=== PATIENT | male | born 1960 | race Two or more races ===

== ENCOUNTER 2018-11-07 14:37 | Emergency (ER) | payer BC, OTHER ==
[2018-11-07] MEDS ORDERED: LIDOCAINE HCL 1% SDV SUBCUT STA (14:46)
[2018-11-07 14:51] VITALS: BP 136/92; TEMP 96.9; BMI 32.7
[2018-11-07] MEDS ORDERED: TENIVAC IM ONE (15:03)
--- NOTE | 2018-11-07 15:20 | ED.PDOC ---
General ED Provider: Dr. RAQUEL FARLEY-ER Chief Complaint: Finger Laceration Stated Complaint: something hit my finger and cut it Time Seen by Physician: 14:40 Mode of Arrival: Walk-In Information Source: Patient Exam Limitations: No limitations Primary Care Provider: NEHEMIAS WEBER Nursing and Triage Documentation Reviewed and Agree: Yes Does patient meet sepsis criteria?: No System Inflammatory Response Syndrome: Not Applicable Sepsis Protocol: For patient's 13 years and over: Temp is 96.8 and below OR 101 and greater Pulse >90 BPM Resp >20/minute Acutely Altered Mental Status Are patient's symptoms suggestive of a new infection, such as: -Pneumonia -Skin, Soft Tissue -Endocarditis -UTI -Bone, Joint Infection -Implantable Device -Acute Abdominal Infection -Wound Infection -Meningitis -Blood Stream Catheter Infection -Unknown Skin Complaint Exam - Laceration/Abrasion/Hand Complaint/Exam Location of Injury: Left, Digit #1 Mechanism of Injury: Laceration Onset/Duration: 30min Symptoms Are: Still present Initial Severity: Mild Current Severity: Mild Aggravating: Movement Alleviating: Compression Associated Signs and Symptoms: Denies: Fever, Chills, Erythema, Numbness, Tingling Differential Diagnoses: Laceration Review of Systems - Review Of Systems Constitutional: Reports: No symptoms Eyes: Reports: No symptoms Ears, Nose, Mouth, Throat: Reports: No symptoms Respiratory: Reports: No symptoms Cardiac: Reports: No symptoms GI: Reports: No symptoms : Reports: No symptoms Musculoskeletal: Reports: No symptoms Skin: Reports: No symptoms Neurological: Reports: No symptoms Endocrine: Reports: No symptoms Hematologic/Lymphatic: Reports: No symptoms All Other Systems: Reviewed and Negative Past Medical History - Past Medical History Previously Healthy: No Endocrine: Reports: Unknown Cardiovascular: Reports: Unknown Respiratory: Reports: Unknown Hematological: Reports: Unknown Gastrointestinal: Reports: Unknown Genitourinary: Reports: Unknown Neuro/Psych: Reports: Unknown Musculoskeletal: Reports: Unknown Cancer: Reports: Unknown - Surgical History General Surgical History: Reports: Unknown - Family History Family History: Reports: Unknown - Social History Smoking Status: Never smoker Hx Substance Use: No Alcohol Screening: None - Immunizations Tetanus Shot up to Date: No Physical Exam - Physical Exam Appearance: Well-appearing, No pain distress, Well-nourished Pain Distress: Mild Eyes: JARED ENT: Ears normal, Nose normal, Oropharynx normal Neck: Supple Respiratory: Airway patent, Breath sounds clear, Breath sounds equal, Respirations nonlabored Cardiovascular: RRR, Pulses normal, No rub, No murmur GI/: Soft, Nontender, No masses, Bowel sounds normal, No Organomegaly Musculoskeletal: Normal strength, ROM intact, No edema, No calf tenderness Skin: Warm, Dry, Normal color Neurological: Sensation intact, Motor intact, Reflexes intact, Cranial nerves intact, Alert, Oriented Psychiatric: Affect appropriate, Mood appropriate Interpretation - Radiology Interpretation Radiology Interpretation By: ED Physician Radiology Results: Negative Procedures - Laceration/Wound Repair No standard instances Wound Description: Linear Wound Length (cm): 1.5cm fingertip left index Wound Explored: Clean Wound Irrigated: No Wound Prep: Hibiclens Anesthesia: Lidocaine Wound Repaired With: Sutures Suture Size and Type: 4.0 prolene Number of Sutures: 3 Layer Closure?: No Sterile Dressing Applied?: Yes Splint Applied?: No Sling Applied?: No Critical Care Note - Critical Care Note Total Time (mins): 0 Course - Course Orders, Labs, Meds: Orders Category Date Time Status Lidocaine HCl/Pf [Lidocaine HCl 1% Sdv] MEDS 11/07/18 14:46 Discontinued 5 ml SUBCUT ONCE STA Tetanus and Diphtheria Tox/Pf [Tenivac] MEDS 11/07/18 15:03 Discontinued 0.5 ml IM .ONCE ONE FINGER(S), LEFT MIN 2V Stat RADS 11/07/18 15:09 Taken Medications Discontinued Medications Generic Name Dose Route Start Last Admin Trade Name Freq PRN Reason Stop Dose Admin Lidocaine HCl 5 ml 11/07/18 14:46 11/07/18 15:03 Lidocaine Hcl 1% Sdv SUBCUT 11/07/18 14:47 5 ml ONCE STA Administration Tetanus/Diphtheria Toxoids Adsorbed 0.5 ml 11/07/18 15:03 11/07/18 15:07 Tenivac IM 11/07/18 15:04 0.5 ml .ONCE ONE Administration Vital Signs: Temp Pulse Resp BP Pulse Ox 11/07/18 14:37 96.9 F L 95 H 20 136/92 H 96 Departure - Departure Time of Disposition: 15:28 Disposition: HOME SELF-CARE Discharge Problem: Laceration of finger Instructions: Finger Laceration (ED) Condition: Good Pt referred to PMD for follow-up: Yes IPMP verified?: No Additional Instructions: wound care---sutures out in 7 days---return if any signs of infection Allergies/Adverse Reactions: Allergies No Known Allergies Allergy (Verified 11/07/18 14:42) Home Medications: Ambulatory Orders Diclofenac Sodium 75 mg PO BID 11/07/18 Escitalopram Oxalate [Lexapro] 20 mg PO DAILY 11/07/18 Multivitamin 1 cap PO DAILY 11/07/18 Omeprazole Magnesium [Prilosec Otc] 20 mg PO DAILY 11/07/18 Simvastatin [Zocor] 30 mg PO DAILY 11/07/18 Disposition Discussed With: Patient, Family
--- NOTE | 2018-11-07 16:00 | DI ---
EXAM: Three views of the left index finger COMPARISON: None HISTORY: Trauma and pain FINDINGS: There is a soft tissue injury of the left index finger tip. There is a very small osseous fragment seen at the tuft. No other potential fractures are seen. Joint spaces are well preserved. There are no unexpected radiodensities. There is no significant degenerative change. IMPRESSION: Tuft injury as described involving the left index finger.
== END 2018-11-07 15:38 | disposition home or self-care (01) ==
LOC: ED 14:37
DX: S61.211A Laceration without foreign body of left index finger without damage to nail, initial encounter (principal); W45.8XXA Other foreign body or object entering through skin, initial encounter
CPT/HCPCS: 90471; 90714; 99283

== ENCOUNTER 2019-03-14 11:28 | Outpatient (CLI) | END 2019-03-14 11:29 | disposition home or self-care (01) | LOC: RHC-LAB 11:28 → FCC-LAB 11:29 | PROVIDERS: ATTEND Family Medicine | DX: R53.83 Other fatigue (principal); E78.2 Mixed hyperlipidemia; I10 Essential (primary) hypertension; Z68.33 Body mass index [BMI] 33.0-33.9, adult | CPT/HCPCS: 36415; 80053; 80061; 84443; 85025 ==